=== PATIENT | female | born 1985 | race Two or more races ===

== ENCOUNTER 2016-08-23 02:41 | Emergency (ER) | payer OTHER ==
--- NOTE | ~2016-08-23 | CR21 ---
[facility] A Service of [facility] RADIOLOGY TEXT RESULTS PATIENT: GEN HORAN LOCATION: [facility] : [id number] UNIT #: [id number] AGE: [address]: J Luis Schneider SEX: F ORDER DR: [id number] [facility] [address] [place], [place] [address] [id number] MR#: [id number] Acc #: [id number] NAME: GEN HORAN : 1985 SEX: F STUDY DATE/TIME: 08/23/2016 2:45 UNIT: [facility] ROOM: STUDY DESCRIPTION: CR Ankle Min 3 Views Rt Attending Physician: J Luis Schneider P.A.-C. Ordering Physician: J Luis Schneider P.A.-C. Primary Care Physician: No Primary Care Physician MEDICAL IMAGING REPORT This report is preliminary unless electronic signature is present EXAM Right ankle 08/23/2016 HISTORY 30-year-old female in the ED complaining of lateral right ankle pain and swelling after a twisting injury tonight prior to arrival. TECHNIQUE Three-view right ankle series. FINDINGS Moderate lateral soft tissue swelling. The examination is otherwise negative. No fracture, dislocation, or other acute osseous abnormality. IMPRESSION Lateral soft tissue swelling. Right ankle series is otherwise negative. Dictated by... Aman Agrawal M.D. THIS IS AN ELECTRONICALLY VERIFIED REPORT Aman Agrawal M.D. at 08/24/2016 9:54 PM DEBORA/brunilda TD: 08/24/2016 08:28 JOB #: [id number] MEDICAL IMAGING REPORT COPY
== END 2016-08-23 03:37 | disposition home or self-care (01) ==
LOC: CED 02:41
DX: S93.401A Sprain of unspecified ligament of right ankle, initial encounter (principal); X58.XXXA Exposure to other specified factors, initial encounter; Y92.9 Unspecified place or not applicable
CPT/HCPCS: 29405; 73610; 99283

== ENCOUNTER → 2016-09-15 18:18 | Emergency (ER) | payer OTHER | END | disposition left against medical advice (07) | LOC: CED 18:18 | DX: Z53.21 Procedure and treatment not carried out due to patient leaving prior to being seen by health care provider (principal) ==